=== PATIENT | female | born 1940 | race Caucasian/White ===

== ENCOUNTER → 2016-08-10 | Outpatient (CLI) | payer OTHER, MEDICARE | LOC: FIMAGING 10:32 | DX: Z12.31 Encounter for screening mammogram for malignant neoplasm of breast (principal); Z85.3 Personal history of malignant neoplasm of breast; Z90.12 Acquired absence of left breast and nipple | CPT/HCPCS: G0202-52 ==

== ENCOUNTER → 2017-01-27 | Outpatient (CLI) | payer OTHER, MEDICARE | LOC: FIMAGING 14:10 | PROVIDERS: ATTEND Internal Medicine Endocrinology, Diabetes & Metabolism | DX: E04.2 Nontoxic multinodular goiter (principal) ==

== ENCOUNTER → 2017-08-12 | Outpatient (CLI) | payer OTHER, MEDICARE | LOC: FIMAGING 11:40 | PROVIDERS: ATTEND Internal Medicine Hematology & Oncology | DX: Z12.31 Encounter for screening mammogram for malignant neoplasm of breast (principal); Z85.3 Personal history of malignant neoplasm of breast; Z90.12 Acquired absence of left breast and nipple ==

== ENCOUNTER → 2017-08-20 | Outpatient (CLI) | payer OTHER, MEDICARE | LOC: FIMAGING 08:13 | PROVIDERS: ATTEND Internal Medicine Hematology & Oncology | DX: R92.8 Other abnormal and inconclusive findings on diagnostic imaging of breast (principal) ==

== ENCOUNTER → 2018-08-02 | Outpatient (CLI) | payer OTHER, MEDICARE | LOC: FIMAGING 10:59 | PROVIDERS: ATTEND Internal Medicine Hematology & Oncology | DX: Z12.31 Encounter for screening mammogram for malignant neoplasm of breast (principal); Z90.12 Acquired absence of left breast and nipple ==